=== PATIENT | male | born 1975 | race Two or more races ===

== ENCOUNTER 2023-03-18 11:02 | Emergency (ER) | payer MEDICAID ==
[~2023-03-18] VITALS: Ht 167.6 cm; Wt 100.0 kg
[2023-03-18 11:05] VITALS: TEMP 97.7
[2023-03-18] MEDS ORDERED: METF-1211 PO (11:09)
[2023-03-18] MEDS ORDERED: MORPHINE SULFATE 2 MG/ML SYRINGE IVP ONE (11:30)
[2023-03-18] MEDS ORDERED: ACETAMINOPHEN 500 MG TABLET PO ONE (11:30)
[2023-03-18] MEDS ORDERED: SODIUM CHLORIDE 0.9% 3,000 ML IV ONE (11:30)
[2023-03-18] MEDS ORDERED: VANCOMYCIN HCL 1.25 GM in DEXTROSE 5%-WATER 250 ML IV ONE ×2 (11:30→23:15)
[2023-03-18] MEDS ORDERED: PIPERACILLIN/TAZO 3.375 GM/D5W 50 ML IV ONE ×3 (11:30→23:15)
[2023-03-18] MEDS ORDERED: 0.9% SODIUM CHLORIDE 10 ML SYRINGE IVP PRN (11:30)
[2023-03-18 11:48] LABS: BASOPHILS % (AUTO) 0.5 % (0.0-2.0); EOSINOPHILS % (AUTO) 0.5 % (1.0-6.0); HEMATOCRIT 39.5 % (41-53); HEMOGLOBIN 13.8 g/dL (13.5-17.5); LYMPHOCYTES # (AUTO) 1.6 K/uL (1.0-4.8); LYMPHOCYTES % (AUTO) 11.4 % (22.0-44.0); MEAN CORPUSCULAR HEMOGLOBIN 32.8 pg (26.0-34.0); MEAN CORPUSCULAR VOLUME 94 fL (80-100); MONOCYTES # (AUTO) 1.3 K/uL (0.1-1.0); MONOCYTES % (AUTO) 9.7 % (2.0-9.0); NEUTROPHILS # (AUTO) 10.7 K/uL (1.8-7.7); NEUTROPHILS % (AUTO) 77.9 % (40.0-70.0); PLATELET COUNT (AUTO) 279 K/uL (150-450); RED BLOOD CELL COUNT(AUTO) 4.21 MIL/uL (4.50-5.90); WHITE BLOOD COUNT (AUTO) 13.8 K/uL (4.5-11.0)
[2023-03-18 11:48] LABS: COVID AG,FIA SOURCE NASAL SWAB
[2023-03-18 11:58] LABS: ANION GAP 10 mmol/L (8-16); CALCIUM, TOTAL 9.2 mg/dL (8.8-10.5); CARBON DIOXIDE 29 mmol/L (22-29); CHLORIDE 100 mmol/L (98-107); CREATININE 0.71 mg/dL (0.60-1.30); GLOMERULAR FILTR. RATE CALC > 60 mL/min (>60); GLUCOSE,RANDOM 240 mg/dL (70-110); POTASSIUM 4.1 mmol/L (3.5-5.1); SODIUM SERUM 139 mmol/L (136-145); UREA NITROGEN, BLOOD 10 mg/dL (7-18)
[2023-03-18 12:06] LABS: LACTIC ACID 1.1 mmol/L (0.4-2.0)
[2023-03-18] MEDS ORDERED: SODIUM CHLORIDE 0.9% 100 ML ONE (12:07)
[2023-03-18] MEDS ORDERED: IOHEXOL 350 MG/ML 100 ML VIAL ONE (12:07)
[2023-03-18 12:23] LABS: ALANINE AMINOTRANSFERASE 27 U/L (12-78); ALBUMIN 3.4 g/dL (3.4-5.0); ALKALINE PHOSPHATASE 113 U/L (46-116); ASPARTATE AMINOTRANSFERASE 15 U/L (15-37); BILIRUBIN,TOTAL 0.4 mg/dL (0.1-1.0); CREATINE KINASE, TOTAL ONLY 78 U/L (39-308)
[2023-03-18 12:30] LABS: SARS-COV2 (COVID) ANTIGEN,FIA Negative (Negative)
[2023-03-18] MEDS ORDERED: ONDANSETRON HCL 4 MG/2 ML VIAL IVP ONE (18:30)
[2023-03-18] MEDS ORDERED: HYDROmorphone HCL 2 MG/ML SYRINGE IVP ONE (18:30)
[2023-03-19 00:17] VITALS: BP 128/66; PULSE 78; RESP 16
[2023-03-19 01:31] LABS: GLUCOMETER DEV NAME(LOC) ER.6; GLUCOSE,POINT OF CARE 327 MG/DL (70-110)
== END 2023-03-19 01:29 | disposition short-term general hospital (02) ==
LOC: EMS 11:03
DX: J34.0 Abscess, furuncle and carbuncle of nose (principal); E11.65 Type 2 diabetes mellitus with hyperglycemia; Z20.822 Contact with and (suspected) exposure to COVID-19; Z98.890 Other specified postprocedural states
CPT/HCPCS: 99291; 70470; 96366; 96365; 96375; 87426; 80053; 82550; 82962; 83605; 85025; 87040; 36415; 70487; 96368; 84145; J1170; J2270; J2405; J2543; J3370; Q9967; J7060; J7030; J7050

== ENCOUNTER 2023-07-10 18:44 | Emergency (ER) | payer MEDICAID ==
[~2023-07-10] VITALS: Ht 172.7 cm; Wt 100.0 kg
[~2023-07-10 18:44] MED LIST: METF-1211 PO
[2023-07-10 18:54] VITALS: TEMP 98.1
[2023-07-10] MEDS: 0.9% SODIUM CHLORIDE 1000 ML IRRIG SOLUTION BOTTLE IRRIG ONE (21:29)
[2023-07-10] MEDS: LIDOCAINE 1%/EPI 1:200,000/PF 10 ML VIAL ID ONE (21:29)
[2023-07-10 21:34] VITALS: BP 141/79; PULSE 90; RESP 18
[2023-07-10] MEDS ORDERED: CEPH-558 PO (22:11)
[2023-07-10] MEDS ORDERED: SULF1TAB42 PO (22:11)
[2023-07-10] MEDS ORDERED: DOXYCYCLINE HYCLATE 100 MG TABLET PO ONE (22:15)
[2023-07-10] MEDS: HYDROCODONE/ACETAMINOPHEN 5-325 MG TABLET PO ONE (22:18)
[2023-07-10] MEDS: SULFAMETHOX/TRIMETH DS 800-160 MG/TABLET PO ONE (22:18)
[2023-07-10] MEDS: CEPHALEXIN MONOHYDRATE 500 MG CAPSULE PO ONE (22:18)
[2023-07-10] MEDS ORDERED: LIDOCAINE/PF 1% 2 ML VIAL ONE (22:39)
[2023-07-10] MEDS: CefTRIAXone SODIUM 1 GM/VIAL IM ONE (22:41)
== END 2023-07-10 23:07 | disposition home or self-care (01) ==
LOC: EMS 18:44
DX: L02.811 Cutaneous abscess of head [any part, except face] (principal); E11.9 Type 2 diabetes mellitus without complications; Z98.890 Other specified postprocedural states
CPT/HCPCS: 99284; 82962; 96372; J0696; J3490 ×2

== ENCOUNTER 2023-07-11 14:26 | Emergency (ER) | payer MEDICAID ==
[~2023-07-11] VITALS: Ht 172.7 cm; Wt 97.3 kg
[~2023-07-11 14:26] MED LIST changes: +CEPH-558 PO; +SULF1TAB42 PO
[2023-07-11 14:38] VITALS: TEMP 98.9
[2023-07-11] MEDS: TraMADol HCL 50 MG TABLET PO ONE (17:29)
[2023-07-11 18:16] VITALS: BP 119/69; PULSE 76; RESP 18
== END 2023-07-11 18:27 | disposition home or self-care (01) ==
LOC: EMS 14:28
DX: L02.811 Cutaneous abscess of head [any part, except face] (principal); E11.9 Type 2 diabetes mellitus without complications; Z98.890 Other specified postprocedural states
CPT/HCPCS: 99283

== ENCOUNTER 2023-07-13 14:04 | Emergency (ER) | payer MEDICAID ==
[~2023-07-13] VITALS: Ht 170.2 cm; Wt 97.3 kg
[2023-07-13 14:08] VITALS: BP 144/79; PULSE 79; RESP 18; TEMP 98.5
[2023-07-13] MEDS ORDERED: AMLO5TAB66 PO (14:13)
[2023-07-13] MEDS ORDERED: ALBU18HF12 IH (14:13)
[2023-07-13] MEDS ORDERED: INSU100I26 SQ (14:13)
[2023-07-13] MEDS ORDERED: METF-890 PO (14:13)
== END 2023-07-13 16:29 | disposition home or self-care (01) ==
LOC: EMS 14:04
DX: L02.811 Cutaneous abscess of head [any part, except face] (principal); E11.9 Type 2 diabetes mellitus without complications; Z48.00 Encounter for change or removal of nonsurgical wound dressing
CPT/HCPCS: 82962; 99282

== ENCOUNTER 2023-07-20 13:42 | Emergency (ER) | payer MEDICAID ==
[~2023-07-20] VITALS: Ht 170.2 cm; Wt 97.3 kg
[~2023-07-20 13:42] MED LIST changes: +ALBU18HF12 IH; +AMLO5TAB66 PO; +INSU100I26 SQ; -METF-1211 PO; +METF-890 PO; -SULF1TAB42 PO
[2023-07-20 13:48] VITALS: TEMP 98.4
[2023-07-20 14:06] LABS: GLUCOMETER DEV NAME(LOC) ERT.5; GLUCOSE,POINT OF CARE 267 MG/DL (70-110)
[2023-07-20] MEDS ORDERED: DOXY-354 PO (16:23)
[2023-07-20 16:48] VITALS: BP 121/67; PULSE 76; RESP 16
== END 2023-07-20 16:52 | disposition home or self-care (01) ==
LOC: EMS 13:58
DX: L02.811 Cutaneous abscess of head [any part, except face] (principal); E11.9 Type 2 diabetes mellitus without complications; Z98.890 Other specified postprocedural states
CPT/HCPCS: 82962; 99283

== ENCOUNTER 2024-05-27 23:20 | Emergency (ER) | payer MEDICAID ==
[~2024-05-27] VITALS: Ht 170.2 cm; Wt 100.0 kg
[~2024-05-27 23:20] MED LIST changes: +DOXY-354 PO; +METF-1150 PO; -METF-890 PO
[2024-05-27 23:38] VITALS: TEMP 98.6
[2024-05-28] MEDS: LEVOFLOXACIN 250 MG TABLET PO ONE (03:30)
[2024-05-28] MEDS ORDERED: LEVO750T68 PO (03:31)
[2024-05-28 03:32] VITALS: BP 156/81; PULSE 76; RESP 16; O2SAT 99
== END 2024-05-28 04:30 | disposition home or self-care (01) ==
LOC: EMS 23:20
DX: T25.221A Burn of second degree of right foot, initial encounter (principal); L03.115 Cellulitis of right lower limb; E11.9 Type 2 diabetes mellitus without complications; I10 Essential (primary) hypertension; X10.2XXA Contact with fats and cooking oils, initial encounter; Y93.89 Activity, other specified; Y92.89 Other specified places as the place of occurrence of the external cause; Y99.8 Other external cause status
CPT/HCPCS: 99283

== ENCOUNTER → 2024-08-15 | Emergency (ER) | payer MEDICAID ==
[~2024-08-15] VITALS: Ht 170.2 cm; Wt 90.9 kg
[~2024-08-15] MED LIST changes: +AMOX-457 PO; +ASPI-1444 PO; +IBUP-1492 PO; +INSU3INS3 SQ; +LEVO750T68 PO; +METF-1211 PO; +SULF-261 PO
[2024-08-15 12:45] VITALS: BP 158/85; PULSE 74; RESP 18; TEMP 98.2; O2SAT 99
[2024-08-15] MEDS: IBUPROFEN 600 MG TABLET PO ONE (13:33)
[2024-08-15] MEDS: SULFAMETHOX/TRIMETH DS 800-160 MG/TABLET PO ONE (13:33)
[2024-08-15] MEDS: AMOX TR/POT CLAV 875 MG/125 MG TABLET PO ONE (13:33)
== END | disposition still patient (30) ==
LOC: EMS 12:45
DX: L03.213 Periorbital cellulitis (principal); E11.9 Type 2 diabetes mellitus without complications; Z98.890 Other specified postprocedural states; Z79.4 Long term (current) use of insulin; Z79.82 Long term (current) use of aspirin; Z79.899 Other long term (current) drug therapy
CPT/HCPCS: 99284; Z7502; Z7610